=== PATIENT | male | born 1965 | race Caucasian/White ===

== ENCOUNTER 2024-12-23 14:17 | Emergency (ER) | payer OTHER ==
[~2024-12-23] VITALS: Ht 182.9 cm; Wt 91.8 kg
[2024-12-23 15:01] LABS: BASO % 0.2 % (0.0-1.0); EOS % 0.1 % (0.0-3.0); HEMOGLOBIN 15.2 g/dl (13.5-17.5); LYMPH % 10.6 % (24.0-44.0); MEAN CORPUSCULAR HEMOGLOBIN 30.3 pg (27.0-33.0); MEAN CORPUSCULAR HGB CONC 33.8 g/dl (32.0-36.5); MEAN CORPUSCULAR VOLUME 89.8 fl (80.0-96.0); MONO # 0.5 10^3/uL (0.0-0.8); MONO % 5.1 % (2.0-8.0); NEUTROPHILS # 7.8 10^3/uL (1.5-8.5); NEUTROPHILS % 83.8 % (36.0-66.0); PLATELET COUNT, AUTOMATED 197 10^3/uL (150-450); RED BLOOD COUNT 5.01 10^6/uL (4.30-6.10); WHITE BLOOD COUNT 9.3 10^3/uL (4.0-10.0)
[2024-12-23 15:32] LABS: ALBUMIN 4.4 G/DL (3.2-5.2); ALKALINE PHOSPHATASE 67 U/L (40-129); ALT/SGPT 29 U/L (7.0-40); AST/SGOT 17 U/L (<34); BILIRUBIN,TOTAL 0.5 MG/DL (0.3-1.2); BLOOD UREA NITROGEN 13 MG/DL (9-23); CALCIUM LEVEL 9.6 MG/DL (8.5-10.1); CARBON DIOXIDE LEVEL 27 MMOL/L (20-31); CHLORIDE LEVEL 104 MMOL/L (98-107); CREATININE FOR GFR 0.89 MG/DL (0.70-1.30); GLOMERULAR FILTRATION RATE > 90.0 (>56); GLUCOSE, FASTING 102 MG/DL (60-100); SODIUM LEVEL 141 MMOL/L (136-145); TOTAL PROTEIN 7.7 G/DL (5.7-8.2)
[2024-12-23 18:25] LABS: CK-MB VALUE MASS 2.2 NG/ML (<3.6)
[2024-12-23 18:26] LABS: CPK CREATINE PHOSPHOKINASE 165 U/L (46-171); MB/CK RELATIVE INDEX 1.33 (< OR =4)
[2024-12-23] MEDS: NS (Normal Saline) 0.9% 1,000 ML IV ONE (18:36)
[2024-12-23 18:55] LABS: CK-MB VALUE MASS 3.3 NG/ML (<3.6); MB/CK RELATIVE INDEX 1.7 (< OR =4)
[2024-12-23 19:06] VITALS: TEMP 97.4
[2024-12-23 20:15] VITALS: BP 115/76; O2SAT 97
== END 2024-12-23 20:25 | disposition home or self-care (01) ==
LOC: M ED 14:17
DX: R42 Dizziness and giddiness (principal); M06.9 Rheumatoid arthritis, unspecified; F17.290 Nicotine dependence, other tobacco product, uncomplicated; F10.10 Alcohol abuse, uncomplicated